=== PATIENT | male | born 1975 ===

== ENCOUNTER 2019-03-15 16:49 | Emergency (ER) | payer BC ==
[2019-03-15 17:02] VITALS: BP 140/92
--- NOTE | 2019-03-15 18:01 | UC ---
Complaint Male HPI - HPI Summary HPI Summary: 43-year-old male presents with complaints of left testicular pain that started this morning. Describes pain as a constant ache to 4 out of 10. States pain worsens with sitting and walking. Reports he was seen at [facility] urgent care earlier today and directed to come here for an ultrasound. Patient is a monogamous relationship with long-term male partner. Denies fever, chills, abdominal pain, back or flank pain, dysuria, frequency, urgency, hematuria, or penile discharge. - History of Current Complaint Chief Complaint: UCGU Stated Complaint: PERSONAL Time Seen by Provider: 03/15/19 17:22 Hx Obtained From: Patient Pain Intensity: 4 - Allergies/Home Medications Allergies/Adverse Reactions: Allergies Allergy/AdvReac Type Severity Reaction Status Date / Time No Known Allergies Allergy Verified 03/15/19 17:02 PMH/Surg Hx/FS Hx/Imm Hx Previously Healthy: Yes - Denies significant PMH - Surgical History Surgical History: None - Family History Known Family History: Positive: Non-Contributory - Social History Occupation: Employed Full-time Lives: With Family Alcohol Use: Weekly Substance Use Type: None Smoking Status (MU): Never Smoked Tobacco Review of Systems All Other Systems Reviewed And Are Negative: Yes Constitutional: Negative: Fever, Chills Respiratory: Positive: Negative Cardiovascular: Positive: Negative Gastrointestinal: Negative: Abdominal Pain, Vomiting, Nausea Genitourinary: Positive: Other - See HPI. Negative: Dysuria, Hematuria, Frequency, Urgency, Vaginal/Penile Discharge Musculoskeletal: Positive: Negative Neurological: Positive: Negative Is Patient Immunocompromised?: No Physical Exam - Summary Physical Exam Summary: GENERAL APPEARANCE: Well developed, well nourished, alert and cooperative, and appears to be in no acute distress. CARDIAC: Normal S1 and S2. No S3, S4 or murmurs. Rhythm is regular. There is no peripheral edema, cyanosis or pallor. Extremities are warm and well perfused. Capillary refill is less than 2 seconds. Peripheral pulses intact. LUNGS: Clear to auscultation without rales, rhonchi, wheezing or diminished breath sounds. ABDOMEN: Positive bowel sounds. Soft, nondistended, nontender. No guarding or rebound. No masses or hepatosplenomegally. No CVA tenderness. GENITOURINARY: Circumcised. Normal penis without lesions or drainage. Right testicle normal without tenderness or swelling. Left testicle with mild tenderness and swelling along the posterior testicle. MUSKULOSKELETAL: ROM intact to all extremities. No joint erythema or tenderness. Normal muscular development. Normal gait. SKIN: Skin normal color, texture and turgor with no lesions or eruptions. Triage Information Reviewed: Yes Vital Signs: Initial Vital Signs Temp 98.5 F 03/15/19 16:59 Pulse 76 03/15/19 16:59 Resp 18 03/15/19 16:59 BP 140/92 03/15/19 16:59 Pulse Ox 99 03/15/19 16:59 Vital Signs Reviewed: Yes Diagnostics - Radiology No standard instances Radiology Interpretation Completed By: Radiologist Summary of Radiographic Findings: EXAM: US Scrotum. EXAM DATE/TIME: 2018 6:53 PM. CLINICAL HISTORY: 43 years old, male; Scrotum pain; Additional info: Left testicle pain and. swelling. TECHNIQUE: Imaging protocol: Real- time ultrasound of the scrotum and contents with color Doppler and image documentation. COMPARISON: No relevant prior studies available. FINDINGS: Right Testicle: Right testis measures 3.7 x 2.2 x 2.8 cm. Normal echogenicity. Normal vascular flow. Left Testicle: Left testis measures 4.1 x 2.3 x 2.7 cm. Punctate calcifications in the left testis. Normal echogenicity. Normal vascular flow. Epididymides: Normal. Scrotum: Small left hydrocele. IMPRESSION: 1. Small left hydrocele. 2. No evidence of testicular torsion. Complaint Male Course/Dx - Course Course Of Treatment: 43-year-old male presents with complaints of left testicular pain that started this morning. Describes pain as a constant ache to 4 out of 10. States pain worsens with sitting and walking. Reports he was seen at [facility] urgent care earlier today and directed to come here for an ultrasound. Patient is a monogamous relationship with long-term male partner. Denies fever, chills, abdominal pain, back or flank pain, dysuria, frequency, urgency, hematuria, or penile discharge. Afebrile. Hypertensive otherwise vital signs were stable. Patient had some mild tenderness and swelling to the posterior of the left testicle but otherwise unremarkable exam. [id number] urinalysis showed 1+ ketones otherwise normal. A urine culture is pending. A testicular ultrasound showed a normal left testis with punctate calcifications, normal echogenicity and normal vascular flow. There was a small left hydrocele present. No evidence of torsion. Results were reviewed with the patient. Based on his exam I will treat him for epididymitis with Bactrim DS 1 tab twice a day for 10 days. He is to follow-up with his primary care provider in 3-5 days if symptoms are not improving. Anticipatory guidance warning symptoms were reviewed with the patient. Verbalizes understanding and agrees with plan of care. - Differential Dx/Diagnosis Differential Diagnosis/HQI/PQRI: Epididymitis, Testicular Torsion, Ureteral Calculi, Urinary Tract Infection Provider Diagnosis: Epididymitis, left Discharge - Sign-Out/Discharge Documenting (check all that apply): Patient Departure All imaging exams completed and their final reports reviewed: Yes - Discharge Plan Condition: Stable Disposition: HOME Prescriptions: Sulfamethox/Trimethoprim DS* [Bactrim DS 800/160 TAB*] 1 tab PO BID #20 tab Patient Education Materials: Epididymitis (ED) Referrals: Ryan Hall MD [Primary Care Provider] - 3 Days Additional Instructions: The ultrasound performed in the clinic today showed no evidence of a testicular torsion. The urinalysis was also normal. A urine culture has been sent over we will not have the results of this test for 48-72 hours. Based on your history of exam I suspect that your pain may be caused by a condition called epididymitis. We will start her on an antibiotic to treat for the infection. Start Bactrim DS 1 tablet twice a day for 10 days. Be sure to complete the entire course even if you're feeling better. Follow-up with your primary care provider in 3-5 days if her symptoms are not improving. Seek immediate medical attention in the emergency room if you develop a fever greater than 100.5 F, have worsening pain, difficulty or inability urinate, severe abdominal pain, persistent vomiting, or any worsening of symptoms. - Billing Disposition and Condition Condition: STABLE Disposition: Home - Attestation Statements Provider Attestation: Per institutional requirements, I have reviewed the chart, however, I was not consulted specifically or made aware of this patient by the midlevel provider. I did not personally evaluate, interact with , or disposition this patient.
== END 2019-03-15 19:23 | disposition home or self-care (01) ==
LOC: UCEAST 16:49
DX: N45.1 Epididymitis (principal)
CPT/HCPCS: 76870; 81003; 87086; 99201; G0463